=== PATIENT | female | born 1950 | race Caucasian/White ===

== ENCOUNTER 2016-12-02 05:32 | Inpatient (IN) | payer BC, MEDICARE ==
[~2016-12-02] VITALS: Ht 162.6 cm; Wt 91.0 kg
[~2016-12-02 05:32] MED LIST: CHOL5000 PO; CYAN500L PO; CYCL-259 PO; DOXY100C15 PO; MULT-658 PO; POTA99TA PO; PRAV10TA2 PO; SERT50TA PO; TRIA1TAB3 PO
[2016-12-02] MEDS ORDERED: LACTATED RINGERS 1,000 ML IV SCH (06:15)
[2016-12-02] MEDS ORDERED: THROMBIN 5,000 UNIT VIAL TP ONE (06:47)
[2016-12-02] MEDS ORDERED: BUPIVACAINE/PF-EPI 0.5% 1:200K ONE ×2 (06:47→10:37)
[2016-12-02] MEDS ORDERED: NEOSPORIN OINT, 15GM ONE (06:47)
[2016-12-02] MEDS ORDERED: MIDAZOLAM 1 MG/ML, 2ML ONE (07:04)
[2016-12-02] MEDS ORDERED: HYDROmorphone 2 MG/ML, 1ML ONE ×3 (07:04→14:40)
[2016-12-02] MEDS ORDERED: FENTANYL PF 250 MCG/5ML ONE (07:04)
[2016-12-02] MEDS ORDERED: ONDANSETRON 2MG/ML, 2ML ONE (07:39)
[2016-12-02] MEDS ORDERED: ROCURONIUM 10 MG/ML ONE (07:39)
[2016-12-02] MEDS ORDERED: SUCCINYLCHOLINE 20 MG/ML, 10ML ONE (07:39)
[2016-12-02] MEDS ORDERED: CEFAZOLIN 1,000 MG ONE (07:39)
[2016-12-02] MEDS ORDERED: DEXAMETHASONE 4 MG/ML, 1ML ONE (07:39)
[2016-12-02] MEDS ORDERED: ALBUTEROL SULFATE 200 PUFFS/8.5 GR INH ONE (07:39)
[2016-12-02] MEDS ORDERED: PROPOFOL 10 MG/ML, 50ML ONE (07:39)
[2016-12-02] MEDS ORDERED: PHARMACY MAY ADJ FOR RENAL FX MC PRN (08:00)
[2016-12-02] MEDS ORDERED: ONDANSETRON 2MG/ML, 2ML IVPush PRN ×2 (08:00→13:30)
[2016-12-02] MEDS ORDERED: DIPHENHYDRAMINE 50 MG/ML, 1ML IVPush PRN (08:00)
[2016-12-02] MEDS ORDERED: SENNA/DOCUSATE TABLET PO PRN (08:00)
[2016-12-02] MEDS: D5%-0.9% NACL+KCL 20MEQ 1,000 ML IV SCH ×2 (08:00→19:13)
[2016-12-02] MEDS ORDERED: MAGNESIUM HYDROXIDE 8%, 30ML UDC PO PRN (08:00)
[2016-12-02] MEDS ORDERED: METHOCARBAMOL 750 MG TABLET PO PRN (08:00)
[2016-12-02] MEDS ORDERED: morphine SULFATE 10 MG/ML, 1ML IVPush PRN ×2 (08:00→21:00)
[2016-12-02] MEDS ORDERED: BISACODYL 10 MG SUPP PR PRN (08:00)
[2016-12-02] MEDS ORDERED: POTASSIUM GLUCONATE PO SCH (09:00)
[2016-12-02] MEDS: TRIAMTERENE-HCTZ 37.5/25 MG TABLET PO SCH (09:00)
[2016-12-02] MEDS: SERTRALINE 50MG TABLET PO SCH (09:00)
[2016-12-02] MEDS ORDERED: BUPIVACAINE/PF-EPI 0.25% 1:200K ONE (10:37)
[2016-12-02] MEDS ORDERED: LABETALOL 5MG/ML, 20ML IV PRN (13:30)
[2016-12-02] MEDS ORDERED: METOCLOPRAMIDE 5 MG/ML, 2ML IV PRN (13:30)
[2016-12-02] MEDS ORDERED: hydrALAzine 20 MG/ML, 1ML IV PRN (13:30)
[2016-12-02] MEDS ORDERED: ACETAMINOPHEN 325 MG TABLET PO PRN (13:30)
[2016-12-02] MEDS ORDERED: OXYcodone 5 MG/5 ML ORAL.SOL UDC PO PRN (13:30)
[2016-12-02] MEDS ORDERED: ACETAMINOPHEN 325 MG TABLET ONE (14:34)
[2016-12-02] MEDS ORDERED: ACETAMINOPHEN 650 MG/20.3 ML UDC ONE (14:34)
[2016-12-02] MEDS ORDERED: CYCLOBENZAPRINE 10 MG TABLET ONE (14:35)
[2016-12-02] MEDS ORDERED: OXYcodone 5 MG/5 ML ORAL.SOL UDC ONE (14:35)
[2016-12-02] MEDS: HYDROmorphone 1 MG/ML, 1ML IV PRN ×3 (14:35→14:51)
[2016-12-02] MEDS: CYCLOBENZAPRINE 10 MG TABLET PO PRN (14:38)
[2016-12-02] MEDS ORDERED: FENTANYL PF 100 MCG/2ML ONE (14:40)
[2016-12-02] MEDS: FENTANYL PF 100 MCG/2ML IV PRN ×2 (14:42→14:50)
[2016-12-02] MEDS: OXYcodone/APAP 5/325MG TABLET PO PRN ×2 (18:39→19:11)
[2016-12-02] MEDS: PRAVASTATIN 20 MG TABLET PO SCH (21:13)
[2016-12-02 22:15] VITALS: BP 95/73
[2016-12-02] MEDS: CEFAZOLIN PMX 1GM/50ML 50 ML IVPB SCH (22:49)
[2016-12-03] MEDS: CYCLOBENZAPRINE 10 MG TABLET PO PRN (00:14)
[2016-12-03] MEDS: OXYcodone/APAP 5/325MG TABLET PO PRN ×6 (00:14→20:57)
[2016-12-03 00:15] VITALS: BP 155/61
[2016-12-03] MEDS: D5%-0.9% NACL+KCL 20MEQ 1,000 ML IV SCH ×2 (04:27→14:00)
[2016-12-03 04:46] VITALS: BP 159/68
[2016-12-03] MEDS: CEFAZOLIN PMX 1GM/50ML 50 ML IVPB SCH (06:08)
[2016-12-03 07:46] VITALS: BP 140/73
[2016-12-03] MEDS: SERTRALINE 50MG TABLET PO SCH (08:25)
[2016-12-03] MEDS: TRIAMTERENE-HCTZ 37.5/25 MG TABLET PO SCH (08:25)
[2016-12-03] MEDS: METOCLOPRAMIDE 5 MG/ML, 2ML IVPush SCH ×3 (08:26→20:57)
[2016-12-03 12:38] VITALS: BP 105/67
[2016-12-03] MEDS: PRAVASTATIN 20 MG TABLET PO SCH (20:56)
[2016-12-03 22:02] VITALS: BP 103/52
[2016-12-04 00:09] VITALS: BP 105/56
[2016-12-04] MEDS: OXYcodone/APAP 5/325MG TABLET PO PRN ×2 (01:11→07:45)
[2016-12-04] MEDS: METOCLOPRAMIDE 5 MG/ML, 2ML IVPush SCH ×2 (02:14→07:44)
[2016-12-04 04:09] VITALS: BP 111/60
[2016-12-04] MEDS: D5%-0.9% NACL+KCL 20MEQ 1,000 ML IV SCH (05:03)
[2016-12-04 07:41] VITALS: BP 115/64
[2016-12-04] MEDS: SERTRALINE 50MG TABLET PO SCH (07:45)
[2016-12-04] MEDS: TRIAMTERENE-HCTZ 37.5/25 MG TABLET PO SCH (07:45)
[2016-12-04 10:30] VITALS: BP 140/73
== END 2016-12-04 10:40 | disposition home or self-care (01) | DRG 460 ==
LOC: ORIP 05:32 → 4NOR 15:48
PROVIDERS: ADMIT Orthopaedic Surgery Orthopaedic Surgery of the Spine; ATTEND Orthopaedic Surgery Orthopaedic Surgery of the Spine
PROC: 0SB20ZZ Excision of Lumbar Vertebral Disc, Open Approach (ICD-10-PCS; 2016-12-02)
PROC: 01NB0ZZ Release Lumbar Nerve, Open Approach (ICD-10-PCS; 2016-12-02)
PROC: 0SG10AJ Fusion of 2 or more Lumbar Vertebral Joints with Interbody Fusion Device, Posterior Approach, Anterior Column, Open Approach (ICD-10-PCS; 2016-12-02)
PROC: 4A11X4G Monitoring of Peripheral Nervous Electrical Activity, Intraoperative, External Approach (ICD-10-PCS; 2016-12-02)
PROC: 0SG10K1 Fusion of 2 or more Lumbar Vertebral Joints with Nonautologous Tissue Substitute, Posterior Approach, Posterior Column, Open Approach (ICD-10-PCS; principal; 2016-12-02 07:30)
DX: M48.06 Spinal stenosis, lumbar region (principal); E66.01 Morbid (severe) obesity due to excess calories; M51.36 Other intervertebral disc degeneration, lumbar region; M41.86 Other forms of scoliosis, lumbar region; Z68.35 Body mass index [BMI] 35.0-35.9, adult; Z88.1 Allergy status to other antibiotic agents; Z88.5 Allergy status to narcotic agent; Z88.0 Allergy status to penicillin; Z88.8 Allergy status to other drugs, medicaments and biological substances
CPT/HCPCS: 36415; 72100; 86850; 86900; J0690; J1100; J1170; J2250; J2405; J2704; J3010; J0330; J2270; J2765; J3480